=== PATIENT | male | born 1950 | race Caucasian/White ===

== ENCOUNTER 2024-04-01 16:17 | Emergency (ER) | payer MEDICARE, OTHER, SELFPAY ==
[2024-04-01 16:27] VITALS: BP 141/85
[2024-04-01 16:54] LABS: % Basophils 0.5 % (0-2); % Eosinophils 1.8 % (0-6); % Immature Granulocytes 0.9 % (0-0.5); % Lymphocytes 12.6 % (20.5-51.1); % Monocytes 6.3 % (1.7-9.3); % Neutrophils 77.9 % (42.2-75.2); Absolute Basophils 0.1 10^3/uL (0-0.2); Absolute Eosinophils 0.2 10^3/uL (0-0.7); Absolute Immature Granulocytes 0.1 10^3/uL (0-0.05); Absolute Lymphocytes 1.2 10^3/uL (1.2-3.4); Absolute Monocytes 0.6 10^3/uL (0.1-0.6); Absolute Neutrophils 7.3 10^3/uL (1.4-6.5); Hematocrit 46.1 % (39.0-52.0); Hemoglobin 16.5 g/dL (13.0-18.0); Mean Corp Hgb Conc. 35.8 g/dL (33.0-37.0); Mean Corpuscular Hgb 31.4 pg (27.0-31.0); Mean Corpuscular Volume 87.8 fL (80.0-94.0); Mean Platelet Volume 10.5 fL (7.4-10.4); Nucleated Red Blood Cells % 0 % (-); Platelet Count 309 10^3/uL (130-400); Red Blood Cell Count 5.25 10^6/uL (4.70-6.10); Red Cell Dist. Width 13.8 % (11.5-14.5); White Blood Cell Count 9.4 10^3/uL (4.8-10.8)
[2024-04-01 16:58] LABS: ALT (SGPT) 37 U/L (0-50); AST (SGOT) 22 U/L (17-59); Alkaline Phosphatase 74 U/L (38-126); Blood Urea Nitrogen 23 mg/dl (9-20); Calcium 10.1 mg/dl (8.4-10.2); Carbon Dioxide 21 mmol/L (22-30); Chloride 108 mmol/L (98-107); Glucose 105 mg/dl (70-99); Lipase 676 U/L (23-300); Potassium 4.2 mmol/L (3.5-5.1); Sodium 137 mmol/L (135-145); Total Bilirubin 0.8 mg/dl (0.2-1.3); Total Protein 7.7 g/dl (6.3-8.2); eGFR > 60.00
[2024-04-01 18:00] VITALS: BP 160/87
[2024-04-01] MEDS: NSS 1000 IV (18:43)
[2024-04-01 18:44] VITALS: BMI 24.3
--- NOTE | 2024-04-01 18:48 | ED.GENMED ---
History of Present Illness
General
Chief Complaint: Abdominal Pain
Source: patient and spouse
Time Seen by Provider: 04/01/24 18:05
History of Present Illness
History of Present Illness:
74-year-old male who presents with epigastric abdominal pain. Patient states that about 4 to 5 days ago. Symptoms are worse when he eats but constant in nature. Patient denies fevers. Did have a little bit of vomiting but that has resolved. No
melena or hematochezia. Is not a drinker.
Past History
Past History
ED Past Medical History: HTN, Hypercholesterolemia, NIDDM and Other (Kidney stones); Negative CAD or IDDM
ED Past Surgical History: Appendectomy, Orthopedic (Left rotator cuff surgery) and Urological
Social History
Tobacco: Non-smoker
Alcohol: Occasional
Drug: None
Personal:
Living: with family
Employment: Employed
Family History
Family History: Other (Adopted)
Phy Exam
Physical Exam
Physical Exam:
CONSTITUTIONAL Patient alert and oriented to person, place and time. Well-appearing. Vital signs reviewed.
HEAD atraumatic, normocephalic.
EYES eyelids normal to inspection, Pupils equally round and reactive to light, Extraocular muscles intact, Conjunctiva normal, Sclera normal.
NECK normal range of motion, Trachea midline, no jugular venous distention.
RESPIRATORY CHEST No respiratory distress noted, Chest expansion equal, Bilateral breath sounds clear.
CARDIOVASCULAR regular rate and rhythm, Heart sounds normal.
ABDOMEN mild epigastric tenderness, Bowel sounds normal. No distention.
BACK normal inspection, no obvious deformities
UPPER EXTREMITY range of motion normal, Motor strength normal, no cyanosis, no edema.
LOWER EXTREMITY range of motion normal, Motor strength normal, no cyanosis, no edema.
NEURO Speech normal, No focal motor deficits, [place] coma scale 15, Memory normal, Cranial Nerves intact to screening exam.
SKIN skin warm, dry, and normal in color.
Course
Orders/Labs/Results
Orders:
Orders
04/01/24 16:19
ECG [Electrocardiogram (*1)] Urgent
Reason for Study: Chest Pain
EKG- Treatment ONCE
04/01/24 16:36
CBC/With Diff [Complete Blood Count/With Diff] Urgent
CMP [Comprehensive Metabolic Panel] Urgent
Lipase Urgent
04/01/24 18:29
CT Abd/Pel (IV only)-DH only Urgent
Comment:
Reason For Exam: upper abd pain
04/01/24 18:31
0.9% Sodium Chloride 1000 ml [Nss] 1,000 ml IV BOLUS
04/01/24 18:45
HYDROmorphone [Dilaudid] 0.5 mg IV NOW STA
Abnormal Lab Results
04/01/24
16:36
MCH 31.4 H pg
(27.0-31.0)
MPV 10.5 H fL
(7.4-10.4)
Abs Immat Gran (auto) 0.1 H 10^3/uL
(0-0.05)
Absolute Neuts (auto) 7.3 H 10^3/uL
(1.4-6.5)
Immature Gran % 0.9 H %
(0-0.5)
Neutrophils % 77.9 H %
(42.2-75.2)
Lymphocytes % 12.6 L %
(20.5-51.1)
Chloride 108 H mmol/L
(98-107)
Carbon Dioxide 21 L mmol/L
(22-30)
BUN 23 H mg/dl
(9-20)
Glucose 105 H mg/dl
(70-99)
Lipase 676 H U/L
(23-300)
04/01/24 16:36
04/01/24 16:36
Vital Signs
Initial and Last Documented VS:
Initial Vital Signs
Temp Pulse Resp BP Pulse Ox
98.1 F 65 17 141/85 98
04/01/24 16:27 04/01/24 16:27 04/01/24 16:27 04/01/24 16:27 04/01/24 16:27
Last Documented Vital Signs
Temp Pulse Resp BP Pulse Ox
98.4 F 64 18 149/79 96
04/01/24 18:00 04/01/24 18:00 04/01/24 19:01 04/01/24 19:01 04/01/24 19:01
MDM/Problems Addressed
Differential Diagnosis Includes:
Small bowel obstruction, duodenitis, peptic ulcer disease, cholelithiasis, pancreatitis, AAA
MDM/Problems Addressed:
Cholelithiasis, mild pancreatitis, abdominal pain
*Radiology
Radiology exam reviewed: preliminary read by ED provider (Large gallstone noted)
*Pulse Oximetry
Patient hypoxic: no
*EKG
Interpreted by ED Provider?: Yes
Interpretation: abnormal
Rate: bradycardiac
Rhythm: sinus
Interval: normal interval
Ischemia: non-specific ST changes
*Hydraulic Punch Press Operator Interpretation
Rate: normal
Interpretation: normal
Rhythm: sinus
*Critical Care Note
Total Time (30-74mins, 75-104mins- exclusive of procedures): Not Applicable
Data Reviewed
Source: patient and spouse
Further Testing Considered But Not Given:
Considered ultrasound but based on history, check CT to rule out AAA
Patient Management
Escalation/DeEscalation of care consider admission/obs:
Patient feels much better. Question whether his pain is related to mild pancreatitis versus cholelithiasis. Either way I do think outpatient follow-up is reasonable. Recommended clear liquid diet for 48 hours. Also recommended surgical
gastroenterology follow-up. Also recommended he avoid fatty meals
ED Attending Note
-
Portions of this chart may have been created with voice recognition software.� Occasional wrong word or��sound alike� substitutions may have occurred due to the inherent limitations of voice recognition software.
Discharge Plan
Departure
Patient Disposition: Home (Routine Discharge)
Date of Disposition: 04/01/24
Time of Disposition: 21:05
Patient with high blood pressure during this ER visit?: Yes
Discharge Problem:
mild pancreatitis, Cholelithiasis
Instructions: Acute pancreatitis, Clear Liquid Diet, Gallstones (DC)
Prescriptions:
No Action
omega-3 fatty acids-fish oil [Fish Oil] 1,000 MG capsule
2,400 mg PO DAILY
carvedilol phosphate 20 MG capsule, ER multiphase 24 hr
20 mg PO DAILY
amlodipine 5 MG tablet
5 mg PO DAILY
tamsulosin 0.4 MG capsule
0.4 mg PO DAILY
gemfibrozil 600 MG tablet
1,200 mg PO DAILY
escitalopram oxalate 10 MG tablet
10 mg PO DAILY
hydromorphone [Dilaudid] 2 MG tablet
2 mg PO Q6HPRN PRN (Reason: pain) Qty: 10 0RF
glimepiride 2 MG tablet
2 mg PO DAILY
allopurinol 100 MG tablet
100 mg PO DAILY
metformin 1,000 MG tablet
1,000 mg PO BID
promethazine 25 MG tablet
12.5 mg PO Q6HPRN PRN (Reason: vomiting) Qty: 10 0RF
Referrals:
Tramaine Rizo MD [Active] -
UNKNOWN - PT DOES,NOT KNOW [Family Provider] -
Activity Restrictions/Additional Instructions:
Please stick to a clear liquid diet for the next 48 hours. Please see your doctor and surgery in follow-up in the next 3 to 5 days. Please avoid fatty meals. Return immediately for intractable vomiting, worsening pain or any other concerns
Interventions
Interventions:
*Risk Screen - Suicide Last Done: 04/01/24 16:27
*General Assessment Last Done: 04/01/24 16:27
*Neglect/Abuse Screening Last Done: 04/01/24 16:27
ZB-Qajras-Pdlfkmruge Assessment Last Done: 04/01/24 18:39
Discharge Date and Time
Print Language: SOUTH AFR[place]
[2024-04-01] MEDS: DILAUDID 0.5 MG IV (18:58)
[2024-04-01 19:01] VITALS: BP 149/79
[2024-04-01 21:35] VITALS: BP 138/71
== END 2024-04-01 21:37 | disposition home or self-care (01) ==
LOC: EMR 16:17
PROVIDERS: Emergency Medicine; EMERGENCY PHYSICIAN Emergency Medicine
DX: K85.90 Acute pancreatitis without necrosis or infection, unspecified (principal); K80.20 Calculus of gallbladder without cholecystitis without obstruction; I10 Essential (primary) hypertension; E78.00 Pure hypercholesterolemia, unspecified; E11.9 Type 2 diabetes mellitus without complications; Z79.84 Long term (current) use of oral hypoglycemic drugs; Z87.442 Personal history of urinary calculi; Z88.8 Allergy status to other drugs, medicaments and biological substances
CPT/HCPCS: 99285; 96374; 96361; 74177; 80053; 83690; 85025; 93005; Q9967

== ENCOUNTER 2024-04-03 17:23 | Inpatient (IN) | payer MEDICARE, OTHER, SELFPAY ==
[2024-04-03 11:08] VITALS: BP 127/98
[2024-04-03 11:26] LABS: % Basophils 0.8 % (0-2); % Eosinophils 2.1 % (0-6); % Immature Granulocytes 0.9 % (0-0.5); % Lymphocytes 16.5 % (20.5-51.1); % Monocytes 11.6 % (1.7-9.3); % Neutrophils 68.1 % (42.2-75.2); Absolute Basophils 0.1 10^3/uL (0-0.2); Absolute Eosinophils 0.1 10^3/uL (0-0.7); Absolute Immature Granulocytes 0.1 10^3/uL (0-0.05); Absolute Monocytes 0.7 10^3/uL (0.1-0.6); Absolute Neutrophils 4.3 10^3/uL (1.4-6.5); Hematocrit 42.3 % (39.0-52.0); Hemoglobin 15.3 g/dL (13.0-18.0); Mean Corp Hgb Conc. 36.2 g/dL (33.0-37.0); Mean Corpuscular Volume 85.8 fL (80.0-94.0); Mean Platelet Volume 10.1 fL (7.4-10.4); Nucleated Red Blood Cells % 0 % (-); Platelet Count 261 10^3/uL (130-400); Red Blood Cell Count 4.93 10^6/uL (4.70-6.10); Red Cell Dist. Width 13.8 % (11.5-14.5); White Blood Cell Count 6.3 10^3/uL (4.8-10.8)
[2024-04-03 11:37] LABS: Lactic Acid 1.1 mmol/L (0.7-2.0)
[2024-04-03 11:45] VITALS: BP 126/76
[2024-04-03 11:48] LABS: ALT (SGPT) 26 U/L (0-50); AST (SGOT) 23 U/L (17-59); Albumin 4.6 g/dl (3.5-5.0); Alkaline Phosphatase 74 U/L (38-126); Blood Urea Nitrogen 15 mg/dl (9-20); Calcium 9.8 mg/dl (8.4-10.2); Carbon Dioxide 20 mmol/L (22-30); Chloride 106 mmol/L (98-107); Glucose 174 mg/dl (70-99); Lipase 455 U/L (23-300); Potassium 4.4 mmol/L (3.5-5.1); Sodium 135 mmol/L (135-145); Total Protein 7.2 g/dl (6.3-8.2); eGFR > 60.00
[2024-04-03 12:00] VITALS: BP 113/74
--- NOTE | 2024-04-03 12:15 | ED.GENMED ---
History of Present Illness
<Ariana Jimenez PA-C - Last Filed: 04/03/24 17:49>
General
Chief Complaint: Abdominal Symptoms
Source: patient
Exam Limitations: none
Time Seen by Provider: 04/03/24 11:42
Nursing documentation reviewed up to this point in time: agreed with
History of Present Illness
History of Present Illness:
74-year-old male with past medical history of pancreatitis, nephrolithiasis, [id number]-vxyeifdgm diabetes, hypertension, hyperlipidemia presenting to emergency department today with concerns of epigastric pain. Patient reports that he was seen in
the emergency department 2 days ago and was seen for pancreatitis and gallstones. Patient did not have cholecystitis at the time. Patient states that since discharge, his pain has gotten worse, and he has not been able to keep anything down has had
persistent nausea and vomiting. He has been on a liquid diet. Patient denies any fevers or chills. Patient denies any constipation or diarrhea. Patient denies recent long distance travel outside the country. Patient states that 'I will not leave
here until my gallbladder is removed.' Patient denies chest pain, shortness of breath, flank pain, urinary symptoms.
Past History
<Ariana Jimenez PA-C - Last Filed: 04/03/24 17:49>
Past History
ED Past Medical History: HTN, Hypercholesterolemia, NIDDM and Other (Kidney stones); Negative CAD or IDDM
ED Past Surgical History: Appendectomy, Orthopedic (Left rotator cuff surgery) and Urological
Social History
Tobacco: Non-smoker
Alcohol: Occasional
Drug: None
Personal:
Living: with family
Employment: Employed
Family History
Family History: Other (Adopted)
Review of Systems
<Ariana Jimenez PA-C - Last Filed: 04/03/24 17:49>
Review of Systems
All Other Systems: ROS reviewed and negative except as documented in HPI and ROS
Phy Exam
<Ariana Jimenez PA-C - Last Filed: 04/03/24 17:49>
Physical Exam
Physical Exam:
General: Patient is well appearing and in no acute distress; non-toxic
Skin: Warm and dry, no rashes or lesions
Head: Normocephalic, atraumatic
Eyes: Sclera non-icteric. EOMs intact. PERRLA.
Cardiac: Regular rate and rhythm, no murmurs
Pulm: Normal respiratory effort
Abdomen: Epigastric abdominal tenderness to palpation. No palpable masses. No pulsatile abdominal mass. Normoactive bowel sounds.
Neuro: CN II-XII intact, no focal neurologic deficits.
Psychiatric: Appropriate mood and affect.
Course
<MICHAEL Ennis Last Filed: 04/03/24 17:49>
Orders/Labs/Results
Orders:
Orders
04/03/24 11:20
Cardiovascular Evaluation Urgent
Comment: ADDON
Complete Blood Count/With Diff Urgent
Comprehensive Metabolic Panel Urgent
Lactic Acid Urgent
Lipase Urgent
04/03/24 12:26
US Abdomen Complete/Upper Urgent
Reason For Exam: epigastric pain
04/03/24 12:37
IV Insert/Care/Rem.- Treatment PRN
0.9% Sodium Chloride 1000 ml [Nss] 1,000 ml IV BOLUS
HYDROmorphone [Dilaudid] 0.5 mg IV NOW STA
Ondansetron Injectable [Zofran] 4 mg IV NOW STA
04/03/24 12:38
Electrocardiogram (*1) Urgent
Reason for Study: Abdominal Pain
04/03/24 12:39
EKG- Treatment ONCE
04/03/24 Dinner
NPO
Allow oral meds: Yes
Allow clear liquids: Sips of Clears
04/03/24 16:44
Admit/Transfer Patient As Directed
Co-Sign Provider:
Level of Care: Inpatient admission
Assign to:: Medical/Surgical
Physician / Group: Primitivo Ford
Diagnosis: Acute pancreatitis Cholelithiasis
Reason for Hospitalization: Acute pancreatitis, failed outpatient clear liquid diet with worsening pain.
Expected length of stay greater than two midnights?: Yes
ELOS- Estimated Length of Stay in days: 3
I certify the patient meets the requirements for IP care: Yes
Reason for Overnight Stay: Standard of Care
04/03/24 16:49
Code Status As Directed
Resuscitation Status: Full Code
04/03/24 16:52
Abdomen/Pelvis w/wo Contrast CT [CT Abd/pelvis W/wo Iv Cont] Routine
Comment:
Reason For Exam: Pancreatitis, (-) CT on 04/01, worsening symptoms
04/03/24 16:54
Acetaminophen [Tylenol] 650 mg PO Q6HPRN PRN
HYDROmorphone [Dilaudid] 0.25 mg IV Q4HPRN PRN
HYDROmorphone [Dilaudid] 0.5 mg IV Q4HPRN PRN
04/03/24 17:00
Lactated Ringers [Lr] 1,000 ml IV 150 mls/hr
04/03/24 17:08
Add On- LAB Urgent
Tests Added?: Lipid Profile (cardiovascular) routine
04/03/24 18:00
Ondansetron Injectable [Zofran] 4 mg IV Q6HPRN PRN
04/04/24 08:00
FOLic ACID [Folvite] 1 mg PO DAILY
Abnormal Lab Results
04/03/24
11:20
Abs Immat Gran (auto) 0.1 H 10^3/uL
(0-0.05)
Absolute Lymphs (auto) 1.0 L 10^3/uL
(1.2-3.4)
Absolute Monos (auto) 0.7 H 10^3/uL
(0.1-0.6)
Immature Gran % 0.9 H %
(0-0.5)
Lymphocytes % 16.5 L %
(20.5-51.1)
Monocytes % 11.6 H %
(1.7-9.3)
Carbon Dioxide 20 L mmol/L
(22-30)
Glucose 174 H mg/dl
(70-99)
Lipase 455 H U/L
(23-300)
04/03/24 11:20
04/03/24 11:20
Vital Signs
Initial and Last Documented VS:
Initial Vital Signs
Temp Pulse Resp BP Pulse Ox
98.3 F 74 20 127/98 99
04/03/24 11:08 04/03/24 11:08 04/03/24 11:08 04/03/24 11:08 04/03/24 11:08
Last Documented Vital Signs
Temp Pulse Resp BP Pulse Ox
98.3 F 74 20 128/84 98
04/03/24 11:08 04/03/24 11:08 04/03/24 11:08 04/03/24 13:00 04/03/24 13:30
<Kd Gardner MD - Last Filed: 04/03/24 14:52>
Orders/Labs/Results
Orders:
Orders
04/03/24 11:20
Cardiovascular Evaluation Urgent
Comment: ADDON
Complete Blood Count/With Diff Urgent
Comprehensive Metabolic Panel Urgent
Lactic Acid Urgent
Lipase Urgent
04/03/24 12:26
US Abdomen Complete/Upper Urgent
Reason For Exam: epigastric pain
04/03/24 12:37
IV Insert/Care/Rem.- Treatment PRN
0.9% Sodium Chloride 1000 ml [Nss] 1,000 ml IV BOLUS
HYDROmorphone [Dilaudid] 0.5 mg IV NOW STA
Ondansetron Injectable [Zofran] 4 mg IV NOW STA
04/03/24 12:38
Electrocardiogram (*1) Urgent
Reason for Study: Abdominal Pain
04/03/24 12:39
EKG- Treatment ONCE
04/03/24 Dinner
NPO
Allow oral meds: Yes
Allow clear liquids: Sips of Clears
04/03/24 16:44
Admit/Transfer Patient As Directed
Co-Sign Provider:
Level of Care: Inpatient admission
Assign to:: Medical/Surgical
Physician / Group: Primitivo Ford
Diagnosis: Acute pancreatitis Cholelithiasis
Reason for Hospitalization: Acute pancreatitis, failed outpatient clear liquid diet with worsening pain.
Expected length of stay greater than two midnights?: Yes
ELOS- Estimated Length of Stay in days: 3
I certify the patient meets the requirements for IP care: Yes
Reason for Overnight Stay: Standard of Care
04/03/24 16:49
Code Status As Directed
Resuscitation Status: Full Code
04/03/24 16:52
Abdomen/Pelvis w/wo Contrast CT [CT Abd/pelvis W/wo Iv Cont] Routine
Comment:
Reason For Exam: Pancreatitis, (-) CT on 04/01, worsening symptoms
04/03/24 16:54
Acetaminophen [Tylenol] 650 mg PO Q6HPRN PRN
HYDROmorphone [Dilaudid] 0.25 mg IV Q4HPRN PRN
HYDROmorphone [Dilaudid] 0.5 mg IV Q4HPRN PRN
04/03/24 17:00
Lactated Ringers [Lr] 1,000 ml IV 150 mls/hr
04/03/24 17:08
Add On- LAB Urgent
Tests Added?: Lipid Profile (cardiovascular) routine
04/03/24 18:00
Ondansetron Injectable [Zofran] 4 mg IV Q6HPRN PRN
04/04/24 08:00
FOLic ACID [Folvite] 1 mg PO DAILY
Abnormal Lab Results
04/03/24
11:20
Abs Immat Gran (auto) 0.1 H 10^3/uL
(0-0.05)
Absolute Lymphs (auto) 1.0 L 10^3/uL
(1.2-3.4)
Absolute Monos (auto) 0.7 H 10^3/uL
(0.1-0.6)
Immature Gran % 0.9 H %
(0-0.5)
Lymphocytes % 16.5 L %
(20.5-51.1)
Monocytes % 11.6 H %
(1.7-9.3)
Carbon Dioxide 20 L mmol/L
(22-30)
Glucose 174 H mg/dl
(70-99)
Lipase 455 H U/L
(23-300)
04/03/24 11:20
04/03/24 11:20
Vital Signs
Initial and Last Documented VS:
Initial Vital Signs
Temp Pulse Resp BP Pulse Ox
98.3 F 74 20 127/98 99
04/03/24 11:08 04/03/24 11:08 04/03/24 11:08 04/03/24 11:08 04/03/24 11:08
Last Documented Vital Signs
Temp Pulse Resp BP Pulse Ox
98.3 F 74 20 128/84 98
04/03/24 11:08 04/03/24 11:08 04/03/24 11:08 04/03/24 13:00 04/03/24 13:30
<Ariana Jimenez PA-C - Last Filed: 04/03/24 17:49>
MDM/Problems Addressed
Differential Diagnosis Includes:
ddx include biliary colic, gastritis, pancreatitis, cholecystitis, ACS
MDM/Problems Addressed:
Epigastric pain:
74-year-old male with past medical history of pancreatitis, nephrolithiasis, fhy-eejyacf-ugsmlpddg diabetes, hypertension, hyperlipidemia presenting to emergency department today with concerns of epigastric pain. Patient reports that he was seen in
the emergency department 2 days ago and was seen for pancreatitis and gallstones. Patient did not have cholecystitis at the time. Patient states that since discharge, his pain has gotten worse, and he has not been able to keep anything down has had
persistent nausea and vomiting. On physical exam, he is well-appearing, his vitals are stable, he is afebrile. He does have some tenderness palpation in the epigastric region and worse in the right upper quadrant. He does have guarding with this.
His CBC is unremarkable and his CMP and CBC are unremarkable. His lipase today is 455 which is decreased from 676 recently. Ultrasound was obtained today which does show gallstones but no evidence of cholecystitis. Considering patient persistent
pain, inability to tolerate p.o. intake, he will be admitted to the hospital for further workup and care. Patient referred for hospitalist admission.
Chronic conditions affecting care:
Hypertension, hyperlipidemia, pancreatitis, sleep apnea, prostatic hypertrophy, diabetes
Acute Exacerbation and/or Progression of Chronic Illness:
Hypertension, hyperlipidemia, pancreatitis, sleep apnea, prostatic hypertrophy, diabetes
<Ariana Jimenez PA-C - Last Filed: 04/03/24 17:49>
*Critical Care Note
Total Time (30-74mins, 75-104mins- exclusive of procedures): Not Applicable
ED Attending Note
<Ariana Jimenez PA-C - Last Filed: 04/03/24 17:49>
-
Portions of this chart may have been created with voice recognition software.� Occasional wrong word or��sound alike� substitutions may have occurred due to the inherent limitations of voice recognition software.
<Kd Gardner MD - Last Filed: 04/03/24 14:52>
ED Attending Note
Patient seen and examined by attending physician: Yes
ED Attending Note:
Patient diagnosed with pancreatitis and gallstones in ED 2 days ago, presents to ED secondary to persistent pain along with multiple vomiting episodes today. Denies fever or chills. Denies new trauma. Denies diarrhea. Abdominal pain described as
sharp, nonradiating, without any alleviating or exacerbating factors. Patient has been eating broth with fluids at home since being discharged. Denies previous history of similar symptoms.
Physical Exam
General: mild painful distress, not acutely ill. afebrile
Head: nc/at. eomi
Neck: supple. no meningeal signs.
Heart: s1/s2 regular rate and rhythm, no murmur. equal radial pulses.
Lungs: no acute respiratory distress. clear bilaterally
Abdomen: normal bowel sounds. mild epigastric tenderness to palpation. no rebound/guarding
Neuro: alert and oriented. no focal neurological deficits
Skin: no rash
Psychiatric: well kept. interactive and cooperative
Extremities: no edema. no calf tenderness.
Ultrasound: Cholelithiasis
History and exam consistent with biliary colic, but persistently symptomatic. Patient will be admitted for further evaluation and treatment, including likely surgical consultation.
Discharge Plan
Departure
Patient Disposition: Admit
Date of Disposition: 04/03/24
Time of Disposition: 15:17
Admit to: Med/Surg
Presentation/result/management discussed w/ accepting MD/DO: Hospitalist
Patient with high blood pressure during this ER visit?: Yes
Condition: Fair
Discharge Problem:
Epigastric pain, Intractable nausea
Interventions
Interventions:
*Risk Screen - Suicide Last Done: 04/03/24 11:08
*General Assessment Last Done: 04/03/24 11:08
*Neglect/Abuse Screening Last Done: 04/03/24 11:08
ED- Fall Risk Assessment Last Done: 04/03/24 12:39
*ED COVID-19 Vaccine History Last Done: 04/03/24 12:39
LM-Lninwd-Iotrjuefub Assessment Last Done: 04/03/24 12:39
[2024-04-03 12:39] VITALS: BMI 24.0
[2024-04-03] MEDS: DILAUDID 0.5 MG IV ×3 (12:43→23:33)
[2024-04-03] MEDS: ZOFRAN 4 MG IV (12:43)
[2024-04-03] MEDS: NSS 1000 IV (12:43)
[2024-04-03 13:00] VITALS: BP 128/84
--- NOTE | 2024-04-03 16:07 | HPS.HSE ---
Family Physician
-
Family Physician: Donny Ha
Chief Complaint
-
Epigastric pain, DC from the ED 2 days ago with pancreatitis
History of Present Illness
74-year-old male with RA/PsA (on MTX) NIDDM, HTN, HLD, nephrolithiasis, recent pancreatitis that presented to the ED with concerns of epigastric pain. He was last seen here in the ED 2 days ago where he was found to have mild pancreatitis and
gallstones. No cholecystitis noted from the time he was here. He was discharged from the ED and since that time he has clinically worsened. As of now he is unable to tolerate oral intake, has persistent nausea and vomiting. He was on liquid diet
at tolerating it. Denies fevers chills, constipation or diarrhea. He denies any recent travel or recent excursions. In the ED he told staff 'I will not be [place] my gallbladder is removed'.
On arrival to the ED he was afebrile, hemodynamically stable, on room air with SpO2 high 90s. Labs in the ED showed lipase 455 (down from 632 days ago), bicarb 20 but otherwise unremarkable. Abdominal ultrasound performed in the ED showed
cholelithiasis without evidence of gallbladder inflammation or biliary obstruction. CT A/P from 04/01 did not show any peripancreatic inflammation or fluid collections. In the ED he was given 1 L of IV fluids, 4 mg Zofran, 0.5 mg Dilaudid IV. Upon
time of my evaluation he states that he felt well, pain was minimal.
Medical History
Past Medical History
Past Medical History: Reports Hypercholesterolemia and NIDDM
Additional Past Medical History:
Rheumatoid arthritis/psoriatic arthritis on methotrexate
Past Surgical History: Reports Appendectomy and Orthopedic
Social History
Tobacco: Non-smoker
Alcohol: None
Drug: Marijuana (Medical, chronic pain and sleep disturbance)
Personal:
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
Family History
Family History: Adopted
Allergies / Home Medications
Allergies reflects when Allergies were last updated in [employer].
Home Medications with original date entered in [employer]
Allergy/Medication List:
Listed to metformin and statins.
Review of Systems
-
History Source: Patient
A 12 point ROS was completed and negative except as noted: Yes
Constitutional: Reports No Symptoms and See HPI
Respiratory: Reports No Symptoms and See HPI
Cardiac: Reports No Symptoms and See HPI
Abdomen/GI: Reports Abdominal Pain, Nausea, Vomiting and Diarrhea; Denies Constipated or Bloody Stools
: Reports No Symptoms
Musculoskeletal: Reports No Symptoms
Skin: Reports No Symptoms
Neurological: Reports No Symptoms
Hematologic/Lymphatic: Reports No Symptoms; Denies Bleeding
Physical Exam
Vital Signs
Vital Signs
Temp Pulse Resp BP Pulse Ox
98.3 F 74 20 128/84 98
04/03/24 11:08 04/03/24 11:08 04/03/24 11:08 04/03/24 13:00 04/03/24 13:30
Physical Exam
General: Well Nourished, No Apparent Distress, Comfortable and Conversant
HEENT: NormoCephalic, Anicteric, Moist mucous membranes, Atraumatic and PERRLA; No Thyromegaly
Respiratory: Clear and Non Labored Respirations; No Wheezes, Rales, Rhonchi, Crackles or Accessory Resp Muscle Use
Cardiac: S1/S2 and Regular Rhythm; No Murmur, Rub, Gallop, Peripheral Edema or JVD
GI: Soft, Non Distended, Normal Bowel Sounds and Tender (Epigastric tenderness, no peritoneal signs)
Musculoskeletal: No Clubbing, No Cyanosis and Other (No gross deformities, normal ROM)
Skin: Warm, Dry and Other (Normal skin turgor); No Rash or Jaundice
Neuro: AO x 3, Nonfocal/grossly intact and Cranial Nerves Intact
Laboratory Results
-
04/03/24 11:20
04/03/24 11:20
Laboratory Results
Lactic Acid 1.1 mmol/L (0.7-2.0) 04/03/24 11:20
Total Bilirubin 1.0 mg/dl (0.2-1.3) 04/03/24 11:20
AST 23 U/L (17-59) 04/03/24 11:20
ALT 26 U/L (0-50) 04/03/24 11:20
Alkaline Phosphatase 74 U/L (38-126) 04/03/24 11:20
Lipase 455 U/L (23-300) H 04/03/24 11:20
Impression/Plan
-
#Acute Pancreatitis -- Lee class 0
#Nausea and vomiting
-Differentials include gallstone, SGLT2i, oral antihyperglycemic medications, idiopathic
-Lipase 644 two days ago, CT scan did not show any pancreatic inflammation
-Failed outpatient clear liquid diet, developed recurrent nausea and vomiting
-Ultrasound RUQ today showed cholelithiasis though no signs of cholecystitis
-Hemodynamically stable, [place] score is very low, low risk mortality
Plan
-Start IV LR at 150 mL/h, hematocrit goal <44%
-Order LFTs now rule out CBD stone, trend daily
-Order lipid panel to rule out TGs as etiology
-Repeat CT A/P w/o contrast to reassess
-Hold SGLT2, glimepiride, metformin
-Trend daily Hct, BUN
-NPO, PRN analgesia
-Consider surgical eval if gallstone is cause
#NIDDM
-Home regimen includes Jardiance, metformin, glimepiride
-No recent A1c to review, no known microvascular complications
-Holding oral agents as above, started on ISS with Accu-Cheks
#Hypertension
-Home regimen includes carvedilol twice daily, amlodipine daily
-No known systemic cardiovascular complications
-Blood pressure currently well-controlled despite pain
#HLD
-No known ASCVD history,
-allergic to statin, currently on gemfibrozil twice daily
#RA/PsA -- on immunomodulator
-Per his history he has both rheumatoid and psoriatic arthritis
-On chronic immunosuppression with methotrexate 7.5 mg daily
-No signs of worsening tenosynovitis or joint inflammation
#H/O nephrolithiasis
-No known underlying conditions, likely related to hydration and diet
-No signs of underlying nephrolithiasis now
-Continued on tamsulosin
DVT PPhx: Heparin subcu
Diet: N.p.o.
CODE STATUS: Full code
Disposition: Admit to Med/Surg
The patient Lan Holder is being admitted to the med/surg for acute pancreatitis with nausea and vomiting that failed outpatient trial of clear liquid diet. He has ongoing risk for further morbidity and mortality due to reduced oral intake,
dehydration, potential pancreatic necrosis and recurrent episodes if deemed secondary to cholelithiasis. He will need aggressive monitoring of his oral intake and bowel status, monitoring of his LFTs to rule out choledocholithiasis, potential
surgical intervention on his gallbladder.
[2024-04-03 17:58] LABS: HDL Cholesterol 54 mg/dl; LDL Cholesterol, Calculated 144 mg/dl; Total Cholesterol 231 mg/dl (50-199); Triglyceride 166 mg/dl (10-149); Very Low Density Lipoprotein 33 mg/dl (0-30)
[2024-04-03 18:22] VITALS: BP 138/70
[2024-04-03 18:24] VITALS: BMI 23.7
[2024-04-03] MEDS: LR 1000 IV ×2 (18:29→23:45)
--- NOTE | 2024-04-03 18:41 | PTCARENOTE ---
Pt received from ED. AAOx3. VSS. Pt complaining of 7/10 abdominal pain. PRN IV Dilaudid given with relief. IVF started through [facility]. Pt resting in bed, call guzman within reach. Family at bedside.
[2024-04-03] MEDS: LOPID 600 MG PO (19:59)
[2024-04-03 23:00] VITALS: BP 122/65
[2024-04-03] MEDS: HEPARIN 5000 UNITS SC (23:33)
[2024-04-04] MEDS: LR 1000 IV ×3 (06:15→21:41)
[2024-04-04] MEDS: DILAUDID 0.5 MG IV ×3 (06:15→23:06)
[2024-04-04 07:00] VITALS: BP 129/70
[2024-04-04 07:28] LABS: % Basophils 0.8 % (0-2); % Eosinophils 3.2 % (0-6); % Immature Granulocytes 0.4 % (0-0.5); % Monocytes 14.9 % (1.7-9.3); % Neutrophils 59.7 % (42.2-75.2); Absolute Eosinophils 0.2 10^3/uL (0-0.7); Absolute Monocytes 0.7 10^3/uL (0.1-0.6); Absolute Neutrophils 2.8 10^3/uL (1.4-6.5); Hematocrit 36.7 % (39.0-52.0); Hemoglobin 12.9 g/dL (13.0-18.0); Mean Corp Hgb Conc. 35.1 g/dL (33.0-37.0); Mean Corpuscular Hgb 30.6 pg (27.0-31.0); Mean Platelet Volume 10.6 fL (7.4-10.4); Nucleated Red Blood Cells % 0 % (-); Platelet Count 212 10^3/uL (130-400); Red Blood Cell Count 4.22 10^6/uL (4.70-6.10); Red Cell Dist. Width 13.8 % (11.5-14.5); White Blood Cell Count 4.8 10^3/uL (4.8-10.8)
[2024-04-04 08:02] LABS: ALT (SGPT) 21 U/L (0-50); AST (SGOT) 21 U/L (17-59); Albumin 3.8 g/dl (3.5-5.0); Alkaline Phosphatase 75 U/L (38-126); Blood Urea Nitrogen 14 mg/dl (9-20); Carbon Dioxide 19 mmol/L (22-30); Chloride 108 mmol/L (98-107); Estimated Creatinine Clearance 108 ml/min; Glucose 69 mg/dl (70-99); Magnesium 2.1 mg/dl (1.6-2.3); Potassium 4.1 mmol/L (3.5-5.1); Sodium 133 mmol/L (135-145); Total Bilirubin 0.9 mg/dl (0.2-1.3); Total Protein 6.1 g/dl (6.3-8.2); eGFR > 60.00
[2024-04-04] MEDS: HEPARIN 5000 UNITS SC ×3 (08:20→23:05)
[2024-04-04] MEDS: FOLVITE 1 MG PO (08:21)
[2024-04-04] MEDS: LEXAPRO 10 MG PO (08:21)
[2024-04-04] MEDS: LOPID 600 MG PO ×2 (08:21→21:42)
[2024-04-04] MEDS: FLOMAX 0.4 MG PO (08:21)
[2024-04-04] MEDS: ZYLOPRIM 100 MG PO (08:21)
[2024-04-04] MEDS: NORVASC 5 MG PO (08:27)
[2024-04-04] MEDS: COREG PO (08:28)
--- NOTE | 2024-04-04 09:48 | W.PN.HOSP.TC ---
Addendum entered and electronically signed by Primitivo Ford DO 04/04/24 14:37:
Patient confirms methotrexate dosing of 7.5 mg twice daily on Sundays. His had his home prescription brought in today, he plans to use his home pills. No order in for methotrexate at this time. Added to patient own medication order.
Original Note:
Today's Communication/Plan
-
N.p.o., continue IV fluids
As needed analgesia and antiemetics
General surgery consult
GI consult
Assessment / Plan
Assessment / Plan
#Acute Pancreatitis -- Lee class 0; gallstone versus medication induced
#Pancreatic Atrophy on CT, mild -- with previous med induced pancreatitis, question of chronic component
#Nausea and vomiting
#Epigastric pain -- radiates to the back
-Differentials include gallstone, SGLT2i, oral antihyperglycemic medications, idiopathic
-Lipase 644 two days ago, CT scan did not show any pancreatic inflammation
-Failed outpatient clear liquid diet, developed recurrent nausea and vomiting
-Ultrasound RUQ today showed cholelithiasis though no signs of cholecystitis
-Repeat CT scan here today again without signs of inflammation of the pancreas
-Hemodynamically stable, [place] score is very low, low risk mortality
Plan
-Continue IV LR at 150 mL/h, trend BUN and hematocrit (goal <44%)
-Hold SGLT2, glimepiride, metformin
-NPO, as needed analgesia, as needed antiemetics
-Consult surgery
#Dyspepsia
-Complaining of GERD/dyspepsia symptoms with belching
-Do not suspect this is the primary process causing his symptoms
-Ordered IV Protonix, will reassess symptoms after dosing
#NIDDM
-Home regimen includes Jardiance, metformin, glimepiride
-No recent A1c to review, no known microvascular complications
-Holding oral agents as above, started on ISS with Accu-Cheks
#Hypertension
-Home regimen includes carvedilol twice daily, amlodipine daily
-No known systemic cardiovascular complications
-Blood pressure currently well-controlled despite pain
#HLD
-No known ASCVD history,
-allergic to statin, currently on gemfibrozil twice daily
#RA/PsA -- on immunomodulator
-Per his history he has both rheumatoid and psoriatic arthritis
-On chronic immunosuppression with methotrexate 7.5 mg daily
-No signs of worsening tenosynovitis or joint inflammation
#H/O nephrolithiasis
-No known underlying conditions
-Continued on tamsulosin
DVT PPhx: Heparin subcu
Diet: N.p.o.
CODE STATUS: Full code
Anticipated Discharge: > 48 hours
Subjective/Interval History
-
Date of Service: April 04, 2024
No acute events overnight. States that he did have significant abdominal pain, no nausea or vomiting. Pain is currently well-controlled with his IV Dilaudid dosing. He mentions that the pain slightly shifted overnight and he also developed some
belching. Question if there is a component to GERD/dyspepsia that are contributing to his symptoms. He denies dysphagia or regurgitation.
He also denies chest pain, shortness of breath, fevers or chills, diarrhea. Has not had a bowel movement yet.
Objective Data
-
Labs:
Laboratory Results
04/04/24
06:41
WBC 4.8
Hgb 12.9 L
Hct 36.7 L
Plt Count 212
Sodium 133 L
Potassium 4.1
Chloride 108 H
Carbon Dioxide 19 L
BUN 14
Creatinine 0.7
Glucose 69 L
Calcium 9.0
Total Bilirubin 0.9
AST 21
ALT 21
Alkaline Phosphatase 75
Vital Signs:
Vital Signs
Temp Pulse Resp BP Pulse Ox
97.8 F 53 16 129/70 98
04/04/24 07:00 04/04/24 07:00 04/04/24 07:00 04/04/24 07:00 04/04/24 07:00
I&O
04/03/24 04/04/24 04/05/24
06:59 06:59 06:59
Intake Total 0 / 0
Balance 0 / 0
Review of Systems
-
History Source: Patient
All other systems: Reviewed and negative
Physical Exam
-
General: Well Developed, No Apparent Distress, Comfortable and Conversant
HEENT: Normocephalic, Atraumatic, Moist Mucous Membranes and Anicteric
Respiratory: Clear to Auscultation and Non Labored Respirations; Negative Wheezes, Rales or Rhonchi
Cardiac: Regular Rhythm; Negative Murmur, Rub or Gallop
GI: Soft, Nondistended, Normal Bowel Sounds and Tender (Epigastrium, no peritoneal signs)
Musculoskeletal: No Clubbing, No Cyanosis and No Edema
Skin: Warm and Dry; Negative Rash or Jaundice
Neuro: AO x 3, Nonfocal/Grossly Intact and Central Nerve's Intact
Data Reviewed
-
CT Scan: Report Reviewed by me and Discussed with Patient
Labs: Labs Reviewed by me and Discussed with Patient
--- NOTE | 2024-04-04 10:05 | CON.GS ---
Addendum entered and electronically signed by Isidoro Grajeda MD 04/04/24 16:33:
Patient seen and examined.
Patient is a 74 yo M with a PMH of HLD, NIDDM, and pancreatitis who presents with persistent epigastric abdominal pain radiating through to his back. Mr. Thompson states that his symptoms began last Friday and persisted until prompting
presentation to the ED. He was evaluated in the ED and noted to have a mildly elevated lipase. He was discharged home with medical management. His symptoms persisted prompting presentation to the ER. He denies any jaundice, pale stools, or tea
colored urine. His prior episode of pancreatitis was approximately 9 years ago and was believed to be medication induced (Gregoryuvia). He denies any prior intermittent attacks of RUQ abdominal pain. His pain is worsened by PO intake. Currently he
states that his symptoms have resolved.
Gen: NAD
Abd: soft, NT/ND, non-peritoneal
Labs and imaging reviewed.
Patient is a 74 yo M p/w pancreatitis
Gallstone mediated pancreatitis is certainly in the differential given his cholelithiasis. Prior history of medication related pancreatitis, combined with the lack of elevations in his bilirubin and LFTs are unusual. We did discuss cholecystectomy
as a potentially diagnostic and therapeutic procedure. Given his current clinical stability and questionable diagnosis, recommend GI consultation for opinion on alternative causes of his pancreatitis. Patient is somewhat frustrated on clarity and
direction of his current clinical situation; that being said he agrees with the approach. All questions answered.
-- GI consult
-- Possible laparoscopic cholecystectomy with IOC pending the above
-- LFD, NPO PM
Original Note:
Consultation
-
Date/Time Consultation Requested: 04/04/2024, 07:54
Date/Time Consultation Performed: 04/04/2024, 09:30
Requesting Provider: Primitivo Ford DO
Performing Provider: Isidoro Grajeda MD
Reason for Consultation: gallstones
Medical History
-
Chief Complaint: epigastric pain
History of Present Illness:
74-year-old male with a past medical history of diabetes and pancreatitis 9 years ago, presents to the emergency room complaining of epigastric pain. Patient states the pain started 6 days ago when he woke up from sleep. The pain was epigastric
in nature and worsened in the next 24 hours and into his back. He went to the ER at [facility] 3 days ago and was diagnosed with mild pancreatitis versus cholelithiasis. It was recommended he avoid fatty meals, follow-up with general
surgery, and follow-up with a churn driller. His pain continued to worsen after he was discharged in the ER and he vomited 2 days ago at home. Given worsening pain, he came to the ER yesterday on 04/03.
The patient states no food has triggered his pain. He denies pale stools or dark urine. He denies any jaundice symptoms. He is a former drinker and stopped alcohol use 9 years ago. He states he had some fevers at home but has not had any over
the past few days. He has received Dilaudid while in the hospital which has made his pain improved. On admission his WBC was 6.3 and is 4.8 today. His ALT and AST are within normal range. His lipase is 455 from [address] of the
abdomen pelvis performed yesterday shows moderate diffuse hepatic's steatosis, cholelithiasis, and moderate diverticulosis in the sigmoid colon. We have been consulted for further surgical opinion.
Past Medical History
Past Medical History: Other (Hypercholesterolemia, NIDDM, h/o pancreatitis 9 years ago)
Past Surgical History: Appendectomy and Orthopedic
Social History
Tobacco: Non-Smoker
Alcohol: Former
Drug: Marijuana
Personal:
Employment: Retired
Family History
Family History: Reviewed & Not Pertinent
Allergies / Home Medications
Allergy/AdvReac Type Severity Reaction Status Date / Time
simvastatin Allergy muscle Verified 04/03/24 11:08
aches
sitagliptin [From Januvia] Allergy Unknown Verified 04/03/24 11:08
Brujjpa-TJJ-VvW Reductase Allergy muscle Verified 04/03/24 11:08
Inhibitor aches
[Cibqsii-Nwi-Ksc Reductase
Inhibitor]
�Medication �Instructions �Recorded �Confirmed �Type
amlodipine 5 mg tablet 5 mg PO DAILY 11/04/14 04/03/24 History
escitalopram oxalate 10 mg tablet 10 mg PO DAILY 11/04/14 04/03/24 History
gemfibrozil 600 mg tablet 600 mg PO BID 11/04/14 04/03/24 History
tamsulosin 0.4 mg capsule 0.4 mg PO DAILY 11/04/14 04/03/24 History
allopurinol 100 mg tablet 100 mg PO DAILY 04/22/19 04/03/24 History
glimepiride 2 mg tablet 2 mg PO BID 04/22/19 04/03/24 History
carvedilol 25 mg tablet 25 mg PO DAILY 04/03/24 04/03/24 History
empagliflozin 10 mg tablet 10 mg PO DAILY 04/03/24 04/03/24 History
(Jardiance)
lorazepam 0.5 mg tablet 0.5 mg PO HSPRN PRN sleep 04/03/24 04/03/24 History
metformin 500 mg tablet 1,000 mg PO BIDWMEAL 04/03/24 04/03/24 History
methotrexate sodium 2.5 mg tablet 7.5 mg PO DAVISON 04/03/24 04/03/24 History
Review of Systems
-
History Source: Patient
All other systems: Negative unless noted
Constitutional: Fever
Abdomen/GI: Abdominal Pain (epigastric) and Vomiting
A 10 point review of systems was completed, and was negative except as per HPI.
Physical Exam
Vital Signs
Temp Pulse Resp BP Pulse Ox
97.8 F 53 16 129/70 98
04/04/24 07:00 04/04/24 07:00 04/04/24 07:00 04/04/24 07:00 04/04/24 07:00
04/03/24 04/04/24 04/05/24
06:59 06:59 06:59
Actual Weight 81.391 kg
Body Mass Index (BMI) 23.7
Lab Results
04/04/24 06:41
04/04/24 06:41
WBC 4.8 10^3/uL (4.8-10.8) 04/04/24 06:41
Hgb 12.9 g/dL (13.0-18.0) L 04/04/24 06:41
Hct 36.7 % (39.0-52.0) L 04/04/24 06:41
Plt Count 212 10^3/uL (130-400) 04/04/24 06:41
Abs Immat Gran (auto) 0.0 10^3/uL (0-0.05) 04/04/24 06:41
Neutrophils % 59.7 % (42.2-75.2) 04/04/24 06:41
Physical Exam
General: Well Developed, Well Nourished and No Apparent Distress
GI: Soft, Non Tender and Non Distended
Skin: Warm and Dry
Neuro: AO x 3
Psych: Calm
Data Reviewed
-
CT Scan: Image Personally Visualized and interpreted, Report Reviewed by me and Discussed with Patient
Labs: Labs Reviewed by me, Discussed with Physician and Discussed with Patient
Old Records: Reviewed
Assessment / Plan
-
Assessment: 74-year-old male with a history of pancreatitis 9 years ago presents to the emergency department epigastric pain for the past 6 days and found to have cholelithiasis on CT
Plan:
-No emergent surgery at this time, would first like to have opinion from gastroenterology for ? further testing given lack of rise of liver enzymes
-Possible surgery during this admission
-Continue with pain control
-Will start on a low-fat diet today
-Trend labs
--- NOTE | 2024-04-04 10:37 | CM ---
Patient seen bedside with , initial assessment completed. Patient resides with in a condo with elevator. Patient denies DME other than [facility] provided by [facility], denies VN or SNF history. Patient PCP Dr. Ha, pharmacy [facility] in
[place], confirms prescription coverage. Patient reports he has not eaten since and is hopeful to get his gallbladder out. CM will continue to follow for all discharge planning needs.
Plan; home no needs anticipated.
[2024-04-04] MEDS: PROTONIX IV 40 MG IV (10:49)
[2024-04-04] MEDS: NSS (PRESERVATIVE FREE) 10 ML IV (10:50)
--- NOTE | 2024-04-04 11:23 | CON.GI ---
Consultation
-
Date/Time Consultation Requested: 04/04/24
Date/Time Consultation Performed: 04/04/24
Requesting Provider: Dr. Ford
Performing Provider: Judy Nieto
Reason for Consultation: Acute Pancreatitis
Medical History
Chief Complaint / HPI
Chief Complaint: epigastric pain, nausea, vomiting
History of Present Illness:
Lan Holder is a 74 y.o. male with pmhx RA and psoriatic arthritis on methotrexate, diabetes, hypertension, hyperlipidemia, nephrolithiasis, hx pancreatitis admitted with persistent epigastric pain, nausea and vomiting. He was seen in the ER 2
days prior to presentation found to have mild pancreatitis as well as cholelithiasis without evidence of cholecystitis and was discharged home. He was unable to tolerate p.o. and had persistent symptoms so he returned to the ER yesterday and was
subsequently admitted. On his first presentation to the ER his lipase was 632 and repeat was 455 yesterday. LFTs within normal limits. He is hemodynamically stable and afebrile. Reports one other episode of pancreatitis, about 9 years ago, which
he attributes to excessive etoh use.
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
He has a prior history of heavy alcohol use, from the ages of [age], up to a case of beer daily at 1 point however he cut back starting at the age of 47. No history of intranasal or IV drug use.Had tattoos, multiple tattoos placed over the years,
reputable shop in the [place], with fresh needles. He stopped drinking a few years ago when he was started on MTX.
CT A/P: There are 2 gallstones in the gallbladder lumen. There is no abnormal gallbladder distention, gallbladder wall thickening, or pericholecystic inflammation. There is no abnormal biliary dilatation. There is mild diffuse pancreatic
parenchymal atrophy. There is no pancreatic ductal dilatation. There is no pancreatic or peripancreatic edema to suggest acute interstitial edematous pancreatitis. There is no evidence for pancreatic necrosis or peripancreatic fluid collection.
IMPRESSION:
1. Moderate diffuse hepatic steatosis.
2. Cholelithiasis.
3. Mild chronic bilateral renal disease.
4. Moderate diverticulosis in the sigmoid colon.
5. Moderate to severe enlargement of the prostate gland with evidence for benign prostatic hyperplasia (BPH) causing chronic urinary bladder outlet obstruction.
6. Spinal stimulator in place.
7. Mild to moderate elevation of the right hemidiaphragm.
Prior GI studies:
US abdomen 04/21/2020- Liver- Diffuse fatty infiltration of the liver. 17.6 cm in greatest dimension without focal hepatic mass. Smooth capsular is demonstrated. Hepatopetal flow is demonstrated within main portal vein. Cholelithiasis. Spleen is
normal in size, measuring 11.2 cm.
01/23/24: Tbili 0.5, Alk phos 55, AST 26, ALT 34
06/22/2020: ASMA neg, A1AT DNA neg, celiac panel neg, RAFAELA neg, anti-LKM neg, Soluble liver Ag Ab neg, Ceruloplasmin 23.1, Immunoglobulins 869, ferritin 455, HAV Ab IgG neg, HBsAb neg, GGT 164
04/26/2020- HAV Ig M negative, HBsAg negative, HBcAb Ig M negative, HCV Ab negative
04/04/2020- Alb- 5.4, TB-0.6, AKP-55, AST-83, ALT-79
01/26/2020- AST-99, TB-0.5, AKP-58
Fibroscan (08/11/20): 8.8 kPA w/ IQR of 9% correlates to METAVIR fibrosis score of F2. Recommend repeat in 1 year.
Cologuard negative (05/18/2022)
Last Colonoscopy was at the age of 54. Reportedly Normal colonoscopy.
Past Medical History
Past Medical History: HTN, Hypercholesterolemia, NIDDM and Other (RA/psoriasis, HLD, hx of pancreatitis )
Past Surgical History: Appendectomy
Social History
Tobacco: Former Smoker
Alcohol: Former
Drug: Marijuana
Personal:
Employment: Retired
Allergies / Home Medications
Allergy/AdvReac Type Severity Reaction Status Date / Time
simvastatin Allergy muscle Verified 04/03/24 11:08
aches
sitagliptin [From Januvia] Allergy Unknown Verified 04/03/24 11:08
Paaidqv-[id number] Reductase Allergy muscle Verified 04/03/24 11:08
Inhibitor aches
[Jyopduh-Waw-Xsj Reductase
Inhibitor]
�Medication �Instructions �Recorded
amlodipine 5 mg tablet 5 mg PO DAILY Blood Pressure 11/04/14
escitalopram oxalate 10 mg tablet 10 mg PO DAILY Mental 11/04/14
Health/Anxiety
gemfibrozil 600 mg tablet 600 mg PO BID High Cholesterol 11/04/14
tamsulosin 0.4 mg capsule 0.4 mg PO DAILY Urinary Issue 11/04/14
allopurinol 100 mg tablet 100 mg PO DAILY Gout 04/22/19
glimepiride 2 mg tablet 2 mg PO BID Diabetes 04/22/19
carvedilol 25 mg tablet 25 mg PO DAILY Heart 04/03/24
Disease/Condition
empagliflozin 10 mg tablet 10 mg PO DAILY Diabetes 04/03/24
(Jardiance)
lorazepam 0.5 mg tablet 0.5 mg PO HSPRN PRN sleep 04/03/24
metformin 500 mg tablet 1,000 mg PO BIDWMEAL Diabetes 04/03/24
methotrexate sodium 2.5 mg tablet 7.5 mg PO DAVISON Autoimmune Disorder 04/03/24
Review of Systems
-
History Source: Patient
All other systems: A 12 pt ROS was Negative except as stated above in HPI
Vital Signs
Temp Pulse Resp BP Pulse Ox
97.8 F 53 16 129/70 98
04/04/24 07:00 04/04/24 07:00 04/04/24 07:00 04/04/24 07:00 04/04/24 07:00
Physical Exam
Exam
GENERAL: In no acute distress, appears comfortable
ABDOMEN: +BS; soft, nondistended; mild ttp in epigastrium and RUQ, no rebound or guarding
Results
WBC 4.8 10^3/uL (4.8-10.8) 04/04/24 06:41
Hgb 12.9 g/dL (13.0-18.0) L 04/04/24 06:41
Hct 36.7 % (39.0-52.0) L 04/04/24 06:41
MCV 87.0 fL (80.0-94.0) 04/04/24 06:41
Plt Count 212 10^3/uL (130-400) 04/04/24 06:41
Absolute Neuts (auto) 2.8 10^3/uL (1.4-6.5) 04/04/24 06:41
Sodium 133 mmol/L (135-145) L 04/04/24 06:41
Potassium 4.1 mmol/L (3.5-5.1) 04/04/24 06:41
Chloride 108 mmol/L (98-107) H 04/04/24 06:41
Carbon Dioxide 19 mmol/L (22-30) L 04/04/24 06:41
BUN 14 mg/dl (9-20) 04/04/24 06:41
Creatinine 0.7 mg/dL (0.7-1.3) 04/04/24 06:41
Calcium 9.0 mg/dl (8.4-10.2) 04/04/24 06:41
Total Bilirubin 0.9 mg/dl (0.2-1.3) 04/04/24 06:41
AST 21 U/L (17-59) 04/04/24 06:41
ALT 21 U/L (0-50) 04/04/24 06:41
Alkaline Phosphatase 75 U/L (38-126) 04/04/24 06:41
Lipase 455 U/L (23-300) H 04/03/24 11:20
Diagnostic Image Results:
Prior GI Procedures:
EGD:
Colonoscopy:
Assessment / Plan
-
74 y.o. male with pmhx RA and psoriatic arthritis on methotrexate, diabetes, hypertension, hyperlipidemia, nephrolithiasis, hx pancreatitis (2/2 etoh use?) admitted for gallstone pancreatitis, failed outpatient management.
Gallstone pancreatitis
-meets 2/3 criteria-- pain + lipase, imaging shows diffuse pancreatic parenchymal atrophy, can be normal in setting of age, no sx to suggest EPI; no pancreatic or peripancreatic edema to suggest acute interstitial edematous pancreatitis. There is no
evidence for pancreatic necrosis or peripancreatic fluid collection.
-2nd episode of pancreatitis-- initial episode years ago in setting of excessive etoh use/januvia?
-Lipase improving, 676 --> 455
-LFTs wnl
-BUN improving, 23 --> 15 --> 14
-imaging shows evidence of cholelithiasis without GB distension, wall thickening or pericholecystic inflammation; 2 gallstones in GB lumen
-given normal LFTs and lack of imaging findings, no reason to suspect choledocholithiasis
-c/w IVF-- currently getting LR @ 150 cc/hr
-antiemetics, analgesia prn, PPI
-bowel regimen
-ADAT-- defer to surgery on timing of cholecystectomy (if planning to perform inpatient)
Fatty Liver
-Fibroscan (2019): F2 fibrosis; overdue for repeat, discussed with patient, he will f/u as outpatient
-Previously had chronically elevated LFTs with comprehensive workup that was negative
-LFTs have since normalized-- healthier lifestyle-- stopped drinking, significant weight loss
CRC screening
-Due 05/2025
GI will sign off. Please call if LFTs rise or concern for biliary obstruction or lack of improvement in pancreatitis with supportive measures.
Data Reviewed
-
CT Scan: Report Reviewed by me
Ultrasound: Report Reviewed by me
Old Records: Reviewed
-
-
Thank you for consultation and allowing me to participate in the patient's care. Please call the electronic technician GI physician during the after hours with any questions or concerns.
[2024-04-04 15:16] VITALS: BP 124/59
[2024-04-04] MEDS: COREG 12.5 MG PO (21:42)
[2024-04-04] MEDS: NON-FORMULARY ITEM 1 UNIT PO (21:44)
[2024-04-04 23:06] VITALS: BP 143/77
[2024-04-05] VITALS (11 sets, daily range): BP systolic 113–139; BP diastolic 62–92
[2024-04-05] MEDS: LR 1000 IV ×3 (04:35→21:39)
[2024-04-05 07:51] LABS: % Basophils 0.8 % (0-2); % Eosinophils 4.1 % (0-6); % Immature Granulocytes 0.5 % (0-0.5); % Lymphocytes 24.6 % (20.5-51.1); % Monocytes 15.7 % (1.7-9.3); % Neutrophils 54.3 % (42.2-75.2); Absolute Eosinophils 0.2 10^3/uL (0-0.7); Absolute Monocytes 0.6 10^3/uL (0.1-0.6); Absolute Neutrophils 2.2 10^3/uL (1.4-6.5); Hematocrit 35.2 % (39.0-52.0); Hemoglobin 12.6 g/dL (13.0-18.0); Mean Corp Hgb Conc. 35.8 g/dL (33.0-37.0); Mean Corpuscular Hgb 31.6 pg (27.0-31.0); Mean Corpuscular Volume 88.2 fL (80.0-94.0); Mean Platelet Volume 10.1 fL (7.4-10.4); Nucleated Red Blood Cells % 0 % (-); Platelet Count 177 10^3/uL (130-400); Red Blood Cell Count 3.99 10^6/uL (4.70-6.10); Red Cell Dist. Width 13.5 % (11.5-14.5)
[2024-04-05] MEDS: FOLVITE 1 MG PO (07:52)
[2024-04-05] MEDS: HEPARIN 5000 UNITS SC ×2 (07:52→16:01)
[2024-04-05] MEDS: LOPID 600 MG PO ×2 (07:52→20:26)
[2024-04-05] MEDS: ZYLOPRIM 100 MG PO (07:52)
[2024-04-05] MEDS: FLOMAX 0.4 MG PO (07:52)
[2024-04-05] MEDS: LEXAPRO 10 MG PO (07:52)
[2024-04-05] MEDS: NORVASC 5 MG PO (07:52)
[2024-04-05] MEDS: NSS (PRESERVATIVE FREE) 10 ML IV (07:53)
[2024-04-05] MEDS: PROTONIX IV 40 MG IV (07:53)
[2024-04-05 08:20] LABS: ALT (SGPT) 21 U/L (0-50); AST (SGOT) 24 U/L (17-59); Albumin 3.3 g/dl (3.5-5.0); Alkaline Phosphatase 63 U/L (38-126); Blood Urea Nitrogen 12 mg/dl (9-20); Calcium 9.1 mg/dl (8.4-10.2); Carbon Dioxide 25 mmol/L (22-30); Chloride 109 mmol/L (98-107); Estimated Creatinine Clearance 94 ml/min; Glucose 147 mg/dl (70-99); Potassium 4.3 mmol/L (3.5-5.1); Sodium 135 mmol/L (135-145); Total Bilirubin 0.7 mg/dl (0.2-1.3); Total Protein 5.4 g/dl (6.3-8.2); eGFR > 60.00
[2024-04-05] MEDS: DILAUDID 0.25 MG IV ×3 (09:22→22:16)
[2024-04-05] MEDS: COREG 12.5 MG PO ×2 (10:03→20:25)
--- NOTE | 2024-04-05 10:08 | W.PN.HOSP.TC ---
Today's Communication/Plan
-
lap su today
Assessment / Plan
Assessment / Plan
Assessment:
Pancreatitis
- mild acute pancreatitis with chronic component with CT showing atrophy
- likely biliary origin
- for lap su after discussion with GI and GS
- continue IVF
- pain control, anti-emetics
Dyspepsia
- continue IV PPI
NIDDM
- hold Jardiance, metformin, glimepiride
- continue SSI
- A1c: pending
Essential Hypertension
- continue home Coreg/Norvasc
HLD
- No known ASCVD history,
- allergic to statin, currently on gemfibrozil twice daily
RA/PsA -- on immunomodulator
- Per his history he has both rheumatoid and psoriatic arthritis
- On chronic immunosuppression with methotrexate 7.5 mg daily
- No signs of worsening tenosynovitis or joint inflammation
H/O nephrolithiasis
- No known underlying conditions
- continued on tamsulosin
DVT ppx: SC Heparin
Code: Full
Anticipated Discharge: 24 - 48 hours
Subjective/Interval History
-
Date of Service: April 05, 2024
seen by surgery earlier today for Lap su
Objective Data
-
Labs:
Laboratory Results
04/05/24
07:41
WBC 4.0 L
Hgb 12.6 L
Hct 35.2 L
Plt Count 177
Sodium 135
Potassium 4.3
Chloride 109 H
Carbon Dioxide 25
BUN 12
Creatinine 0.8
Glucose 147 H
Calcium 9.1
Total Bilirubin 0.7
AST 24
ALT 21
Alkaline Phosphatase 63
Vital Signs:
Vital Signs
Temp Pulse Resp BP Pulse Ox
98.5 F 53 18 137/66 98
04/05/24 07:00 04/05/24 07:00 04/05/24 07:00 04/05/24 07:52 04/05/24 08:00
I&O
04/04/24 04/05/24 04/06/24
06:59 06:59 06:59
Intake Total 0 / 0 1440 / 1440
Balance 0 / 0 1440 / 1440
Physical Exam
-
General: No Apparent Distress
HEENT: Normocephalic and Atraumatic
Respiratory: Negative Wheezes
Cardiac: Regular Rhythm and S1/S2
GI: Soft
Genito-urinary: No Costovertebral Tender
Neuro: AO x 3
Data Reviewed
-
Total Time Spent with Patient (in minutes): 41
Labs: Labs Reviewed by me
--- NOTE | 2024-04-05 10:21 | W.SUR.PREOP ---
Pre-Operative Surgical Note
-
I have examined this patient prior to the performance of the scheduled procedure.
The patient's condition is unchanged from the time of the current History and
Physical and the patient is able to undergo the scheduled procedure.
Patient seen and examined today.
At postprandial right upper quadrant pain overnight.
Will plan for a laparoscopic cholecystectomy and cholangiogram in the OR today.
Risks/Benefits/Alternatives, expected postoperative course and possible complications (bleeding, infection, injury to surrounding structures, acute/chronic pain) discussed at length. Patient wishes to proceed with surgery. All questions answered.
Consent obtained.
I spent roughly 50 minutes in total for the care of this patient today including direct patient care and counseling, reviewing labs, imaging, coordination of care, as well as documentation.
--- NOTE | 2024-04-05 11:53 | CM ---
Patient seen, for OR today. CM will continue to follow for all discharge planning needs.
Plan; home no needs, watch for possible VN needs upon discharge.
[2024-04-05 12:24] LABS: Glucose - Point of Care 129 mg/dl (70-99)
--- NOTE | 2024-04-05 13:51 | W.IMMPOSTOP ---
Surgical Immed Post Op Note
-
Primary Surgeon: Tramaine Rizo MD
Assisting Surgeon: None
Pre-op Diagnosis: Gallstone pancreatitis
Post-op Diagnosis: Gallstone pancreatitis, chronic cholecystitis, adhesions
Procedure Performed:
1. Laparoscopic lysis of adhesions
2. Laparoscopic cholecystectomy with cholangiogram
Anesthesia Type: General
Specimen / Cultures: Gallbladder and contents
Estimated Blood Loss: 3 cc
Complications: None
Operative Findings: Fairly significant to midline and right-sided adhesions from his prior open appendectomy. We spent roughly 45 minutes in total lysing adhesions before were able to visualize the gallbladder. The gallbladder had some chronic
inflammation with periduodenal fat plastered over the anterior surface of the gallbladder this was carefully lysed with both sharp, electrocautery and blunt dissection. A critical view of safety was obtained prior to a cholangiogram which
demonstrated no distal filling defects. The duct was ligated with a 5 mm Clip followed by a 0 PDS Endoloop. There was some spillage of bile but no stones.
POST OP PLAN:
Imaging: None
Labs: Routine AM
Diet: Advance to Regular as tolerated
Analgesia: Tylenol 650mg q6 Jacskon, Daiana 5mg q6 PRN, Dilaudid 0.5mg q2h PRN
Neuro/vascular checks: q4h
AC/AP: Hold Therapeutic AC, Ok for DVT PPx
Activity: Ad Ashleigh
Wound/Incisions/Drains: Routine
Abx: None
Dispo: RNF, anticipate discharge home later today versus tomorrow.
[2024-04-05 14:29] LABS: Glucose - Point of Care 147 mg/dl (70-99)
--- NOTE | 2024-04-05 15:00 | TRANSFER ---
Pt transferred back to room after lap su. 5 lap sites to abdomen approximated with surgical glue. Pt on 2L NC. Pt with no complaints or signs of discomfort. Plan of care ongoing.
[2024-04-05 16:36] LABS: Glucose - Point of Care 146 mg/dl (70-99)
[2024-04-05] MEDS: NOVOLOG FLEXPEN-LOW RESISTANCE SC (16:37)
[2024-04-05] MEDS: LR IV (17:22)
[2024-04-05 21:15] LABS: Glucose - Point of Care 302 mg/dl (70-99)
[2024-04-06] MEDS: HEPARIN 5000 UNITS SC ×2 (00:03→08:45)
[2024-04-06 03:00] VITALS: BP 145/75
[2024-04-06] MEDS: DILAUDID 0.25 MG IV (04:13)
[2024-04-06] MEDS: LR 1000 IV (04:13)
[2024-04-06 07:00] VITALS: BP 120/57
[2024-04-06 07:22] LABS: Hematocrit 40.2 % (39.0-52.0); Hemoglobin 14.3 g/dL (13.0-18.0); Mean Corp Hgb Conc. 35.6 g/dL (33.0-37.0); Mean Corpuscular Hgb 31.5 pg (27.0-31.0); Mean Corpuscular Volume 88.5 fL (80.0-94.0); Mean Platelet Volume 10.2 fL (7.4-10.4); Platelet Count 244 10^3/uL (130-400); Red Blood Cell Count 4.54 10^6/uL (4.70-6.10); Red Cell Dist. Width 13.4 % (11.5-14.5); White Blood Cell Count 8.4 10^3/uL (4.8-10.8)
--- NOTE | 2024-04-06 07:32 | W.PN.GS2 ---
Today's Communication / Plan
-
Dispo planning
Assessment / Plan
-
This is a 74-year-old male postoperative day 1 from a laparoscopic cholecystectomy with cholangiogram, and lysis of adhesions for gallstone pancreatitis. Doing well, expected postoperative course.
Okay to DC home today.
Discharge instructions placed, pain meds sent to pharmacy.
Patient to follow-up with me in 2 to 3 weeks.
Time Spent
Total Time Spent with Patient (in minutes): 20
Subjective Data
-
Date of Service: April 06, 2024
Interval Events:
No acute events overnight. Slept well. Pain Controlled. Denies Nausea/Vomiting, +bowel function. Tolerating diet.
Objective Data
-
Intake and Output
04/05/24 04/06/24 04/07/24
06:59 06:59 06:59
Intake Total 1440 / 1440 3805 / 3805
Output Total 1475 / 1475
Balance 1440 / 1440 2330 / 2330
Intake:
Oral fluids 1440 / 1440 1080 / 1080
IV fluids (Total) 2725 / 2725
Normosol 75 / 75
Output:
Urine, Voided 1475 / 1475
Other:
Number of approximated MODERATE 2 3
amounts of urine
Vital Signs
Temp Pulse Resp BP Pulse Ox
98.9 F 61 18 145/75 94
04/06/24 03:00 04/06/24 03:00 04/06/24 03:00 04/06/24 03:00 04/06/24 03:00
Lab Results
04/06/24 06:50
Calcium 9.1 mg/dl (8.4-10.2) 04/05/24 07:41
Magnesium 2.1 mg/dl (1.6-2.3) 04/04/24 06:41
Total Bilirubin 0.7 mg/dl (0.2-1.3) 04/05/24 07:41
AST 24 U/L (17-59) 04/05/24 07:41
ALT 21 U/L (0-50) 04/05/24 07:41
Alkaline Phosphatase 63 U/L (38-126) 04/05/24 07:41
Total Protein 5.4 g/dl (6.3-8.2) L 04/05/24 07:41
Albumin 3.3 g/dl (3.5-5.0) L 04/05/24 07:41
Physical Exam
-
GENERAL/NEURO: Awake, Alert, no distress
CHEST: Unlabored breathing on RA
ABDOMEN: Soft, appropriately tender to palpation, mildly distended, incisions clean dry and intact.
[2024-04-06 07:51] LABS: ALT (SGPT) 79 U/L (0-50); AST (SGOT) 97 U/L (17-59); Albumin 4.1 g/dl (3.5-5.0); Alkaline Phosphatase 84 U/L (38-126); Blood Urea Nitrogen 9 mg/dl (9-20); Calcium 9.4 mg/dl (8.4-10.2); Carbon Dioxide 26 mmol/L (22-30); Chloride 104 mmol/L (98-107); Estimated Creatinine Clearance 108 ml/min; Glucose 146 mg/dl (70-99); Sodium 137 mmol/L (135-145); Total Bilirubin 0.9 mg/dl (0.2-1.3); Total Protein 6.3 g/dl (6.3-8.2); eGFR > 60.00
[2024-04-06 08:11] LABS: Glucose - Point of Care 173 mg/dl (70-99)
[2024-04-06] MEDS: COREG 12.5 MG PO (08:44)
[2024-04-06] MEDS: FLOMAX 0.4 MG PO (08:44)
[2024-04-06] MEDS: NORVASC 5 MG PO (08:44)
[2024-04-06] MEDS: FOLVITE 1 MG PO (08:45)
[2024-04-06] MEDS: ZYLOPRIM 100 MG PO (08:45)
[2024-04-06] MEDS: LOPID 600 MG PO (08:45)
[2024-04-06] MEDS: NSS (PRESERVATIVE FREE) 10 ML IV (08:45)
[2024-04-06] MEDS: PROTONIX IV 40 MG IV (08:45)
[2024-04-06] MEDS: LEXAPRO 10 MG PO (08:45)
[2024-04-06] MEDS: NOVOLOG FLEXPEN-LOW RESISTANCE 1 UNITS SC (08:46)
--- NOTE | 2024-04-06 08:54 | W.PN.HOSP.TC ---
Today's Communication/Plan
-
dc to home today
Assessment / Plan
Assessment / Plan
Assessment:
Pancreatitis
- mild acute pancreatitis with chronic component with CT showing atrophy
- likely biliary pancreatitis with chronic cholecystitis
- s/p lap lysis of adhesions and lap su with negative IOC
- DC home with pain control and GS follow up. No indication for Abx.
Dyspepsia
- continue PPI
NIDDM
- hold Jardiance, metformin, glimepiride
- continue SSI
- A1c: pending
Essential Hypertension
- continue home Coreg/Norvasc
HLD
- No known ASCVD history,
- allergic to statin, currently on gemfibrozil twice daily
RA/PsA -- on immunomodulator
- Per his history he has both rheumatoid and psoriatic arthritis
- On chronic immunosuppression with methotrexate 7.5 mg daily
- No signs of worsening tenosynovitis or joint inflammation
H/O nephrolithiasis
- No known underlying conditions
- continued on tamsulosin
DVT ppx: SC Heparin
Code: Full
More than 30 minutes spent in discharge including
Final examination of the patient
Summarizing hospital stay
Instructions for continuing care to all relevant caregivers
Preparation of discharge records, prescriptions, and referral forms
Total time spent (in minutes): 42
Anticipated Discharge: Today
Subjective/Interval History
-
Date of Service: April 06, 2024
doing well post-su procedure, denies any significant pain and +flatus
Objective Data
-
Labs:
Laboratory Results
04/06/24
06:50
WBC 8.4
Hgb 14.3
Hct 40.2
Plt Count 244 D
Sodium 137
Potassium 4.0
Chloride 104
Carbon Dioxide 26
BUN 9
Creatinine 0.7
Glucose 146 H
Calcium 9.4
Total Bilirubin 0.9
AST 97 H
ALT 79 H
Alkaline Phosphatase 84
Vital Signs:
Vital Signs
Temp Pulse Resp BP Pulse Ox
98.0 F 68 18 120/57 96
04/06/24 07:00 04/06/24 07:00 04/06/24 07:00 04/06/24 07:00 04/06/24 07:00
I&O
04/05/24 04/06/24 04/07/24
06:59 06:59 06:59
Intake Total 1440 / 1440 3805 / 3805
Output Total 1475 / 1475
Balance 1440 / 1440 2330 / 2330
Physical Exam
-
General: No Apparent Distress
HEENT: Normocephalic and Atraumatic
Respiratory: Negative Wheezes or Rales
Cardiac: Regular Rhythm and S1/S2
GI: Soft
Genito-urinary: No Costovertebral Tender
Neuro: AO x 3
Hematologic / Lymphatic: No Lymphadenopathy
Psych: Calm
Data Reviewed
-
Total Time Spent with Patient (in minutes): 42
Labs: Labs Reviewed by me
--- NOTE | 2024-04-06 09:22 | W.DS.TRANS ---
DC Summary - [employer]
-
Discharge Instructions:
Discharge Diagnosis/Procedures Gallstone pancreatitis, chronic cholecystitis.
Laparoscopic cholecystectomy with cholangiogram,
along with lysis of adhesions
Diet No restrictions
Activity No strenuous activity
Driving Restrictions As prior to admission
Bathing Restrictions OK to Shower
Instructions:
Stand-Alone Forms:
Changes to Home Medications: No
Discharge Medications:
DC Medications w/original date entered in 24h00
amlodipine 5 mg tablet 5 mg PO DAILY Blood Pressure 11/04/14
escitalopram oxalate 10 mg tablet 10 mg PO DAILY Mental Health/Anxiety 11/04/14
gemfibrozil 600 mg tablet 600 mg PO BID High Cholesterol 11/04/14
tamsulosin 0.4 mg capsule 0.4 mg PO DAILY Urinary Issue 11/04/14
allopurinol 100 mg tablet 100 mg PO DAILY Gout 04/22/19
glimepiride 2 mg tablet 2 mg PO BID Diabetes 04/22/19
carvedilol 25 mg tablet 25 mg PO DAILY Heart Disease/Condition 04/03/24
empagliflozin 10 mg tablet (Jardiance) 10 mg PO DAILY Diabetes 04/03/24
lorazepam 0.5 mg tablet 0.5 mg PO HSPRN PRN sleep 04/03/24
metformin 500 mg tablet 1,000 mg PO BIDWMEAL Diabetes 04/03/24
methotrexate sodium 2.5 mg tablet 7.5 mg PO DAVISON Autoimmune Disorder 04/03/24
acetaminophen 325 mg tablet 650 mg (2 x 325 mg) PO Q6HPRN PRN mild pain #14 tabs 04/06/24
ondansetron 4 mg disintegrating tablet 4 mg PO Q8H PRN nausea and vomiting #15 tabs 04/06/24
pantoprazole 40 mg tablet,delayed release (Protonix) 40 mg PO DAILY #30 tabs 04/06/24
tramadol 50 mg tablet 25 mg (1/2 x 50 mg) PO Q6HPRN PRN severe pain/breakthrough pain #8 tabs 07/30/24
Home Medication Changes
Pending Results: No
Total time spent discharging patient (in min): 42
--- NOTE | 2024-04-06 10:32 | CM ---
Patient seen bedside, reports he is discharging home today. Patient reports he is very happy with the care he has received at [facility]. CM reviewed IMM, signed, placed in chart. Patient denies any needs or VN upon discharge. CM will continue to
follow for all discharge planning needs.
Plan; home no needs.
[2024-04-06 11:12] LABS: Glycohemoglobin (HgbA1c) 7.9 % (4.0-5.6)
--- NOTE | 2024-04-13 16:52 | OR.RPT ---
Operative Report
Operative Report
Patient Name: Lan Holder
: 1950
Date of Operation: 04/05/2024
Preoperative Diagnosis: Gallstone pancreatitis
Postoperative Diagnosis: Gallstone pancreatitis, chronic cholecystitis, intra-abdominal adhesions
Procedure(s):
Laparoscopic Cholecystectomy with Cholangiogram
Laparoscopic lysis of adhesions
Surgeon(s):
Dr. Rizo
Laborer Stores(s):
None
Anesthesia: General
Estimated Blood Loss: 3 cc
Urine Output: None
Drains/Lines/Implants: None
Specimens:
1. Gallbladder and contents
HPI/Surgical Indications:
This is a 74-year-old male with a history of prior open appendectomy who presented with abdominal pain, found to have gallstone pancreatitis. Risks/Benefits/Alternatives were discussed at length, and the patient agreed to proceed with surgery.
Operative Findings: Fairly significant to midline and right-sided adhesions from his prior open appendectomy. We spent roughly 45 minutes in total lysing adhesions before were able to visualize the gallbladder. The gallbladder had some chronic
inflammation with periduodenal fat plastered over the anterior surface of the gallbladder this was carefully lysed with both sharp, electrocautery and blunt dissection. A critical view of safety was obtained prior to a cholangiogram which
demonstrated no distal filling defects. The duct was ligated with a 5 mm Clip followed by a 0 PDS Endoloop. There was some spillage of bile but no stones.
Procedure Description:
The patient was brought to the Operating Room and placed in the supine position. IV antibiotics were infused and sequential compression devices were confirmed to be on. Following uneventful induction of general endotracheal anesthesia, an
orogastric tube was placed. The abdomen was prepped and draped in the usual sterile fashion. The abdomen was entered using an infraumbilical open Michael technique. Pneumoperitoneum to 15 mmHg pressure was obtained without difficulty and we
confirmed that no injury had occurred during our entry. Interestingly there was significant amount of adhesions stretching from his right lower quadrant all the way up to the falciform ligament completely obscuring our view of the gallbladder. A 5
mm port was placed in the left upper quadrant and using a bipolar energy device as well as blunt and sharp dissection the adhesions were carefully dissected until we were able to place our standard three 5 mm ports along the right subcostal margin.
The patient was positioned in reverse trendelenberg and rotated with the right side up slightly. A locking grasping forceps was placed on the fundus of the gallbladder where it was then retracted cephalad and to the right. Again there is
significant adhesions over the overlying surface of the gallbladder consistent with chronic cholecystitis. Again we dissected this tediously using blunt and bipolar dissection. Using appropriate grasping instruments, the peritoneum overlying the
triangle of Calot was incised. The cystic duct/gallbladder junction was identified, dissected circumferentially. The cystic artery was identified medially and was dissected circumferentially. A critical view was obtained. A clip was then placed
on the cystic duct/gallbladder junction and an intraoperative cholangiogram performed using fluoroscopy, which showed good flow of dye into the duodenum. There were no intra- or extrahepatic bile duct filling defects. The biliary anatomy appeared
normal. Following completion of the cholangiogram, the catheter was removed. Two clips were then placed proximally on the cystic duct and the duct divided. This was reinforced with a 0 PDS Endoloop. Two clips were placed proximally and one
distally on the cystic artery, and the artery was divided. Remaining soft tissue attachments of the gallbladder to the liver bed were then divided using electrocautery. There was minimal spillage of bile and no spillage of stones. The gallbladder
bed was inspected and excellent hemostasis was obtained. The gallbladder was extracted through the 12 mm trocar site using an endocatch bag. The abdomen was again irrigated and excellent hemostasis was assured. All remaining trocars were then
removed and the pneumoperitoneum was evacuated. As we were closing the 12 mm trocar site I noted small bowel near the inferior portion of the incision and so reinflated the abdomen with pneumoperitoneum and placed my camera through the left lower
quadrant port. There I noted several loops of small bowel adhered to the anterior abdominal wall. Though we were close to the edge of the bowel wall, no injury was identified. Under direct visualization the 12 mm trocar was then closed using 0
PDS running suture. The trocars were once again removed and pneumoperitoneum evacuated. All trocar sites were closed at the skin level using 4-0 Monocryl followed by Dermabond. Overall, the patient tolerated the procedure well and was taken to
the Recovery Room postoperatively in stable condition.
I was the attending physician and performed the procedure with no assistance. I was present for all portions of the case
Tramaine Rizo MD
== END 2024-04-06 11:19 | disposition home or self-care (01) | DRG 417 ==
LOC: 4 WEST ACU 17:23
PROVIDERS: Radiology Diagnostic Radiology; Surgery; ADMITTING PHYSICIAN Internal Medicine; ATTENDING PHYSICIAN Internal Medicine; CONSULT PHYSICIAN Internal Medicine; CONSULT PHYSICIAN Surgery; EMERGENCY PHYSICIAN Emergency Medicine; FAMILY PHYSICIAN Internal Medicine
PROC: BF5C2Z0 Other Imaging of Hepatobiliary System, All using Fluorescing Agent, Intraoperative (ICD-10-PCS; 2024-04-05)
PROC: 0FT44ZZ Resection of Gallbladder, Percutaneous Endoscopic Approach (ICD-10-PCS; 2024-04-05)
PROC: 0DNW4ZZ Release Peritoneum, Percutaneous Endoscopic Approach (ICD-10-PCS; 2024-04-05)
DX: K80.10 Calculus of gallbladder with chronic cholecystitis without obstruction (principal); K85.10 Biliary acute pancreatitis without necrosis or infection; K86.1 Other chronic pancreatitis; E11.9 Type 2 diabetes mellitus without complications; I10 Essential (primary) hypertension; K66.0 Peritoneal adhesions (postprocedural) (postinfection); K86.89 Other specified diseases of pancreas; K57.30 Diverticulosis of large intestine without perforation or abscess without bleeding; G89.29 Other chronic pain; K76.0 Fatty (change of) liver, not elsewhere classified; E78.00 Pure hypercholesterolemia, unspecified; N40.1 Benign prostatic hyperplasia with lower urinary tract symptoms; M06.9 Rheumatoid arthritis, unspecified; L40.50 Arthropathic psoriasis, unspecified; Z87.442 Personal history of urinary calculi; Z79.631 Long term (current) use of antimetabolite agent; Z88.8 Allergy status to other drugs, medicaments and biological substances; Z79.84 Long term (current) use of oral hypoglycemic drugs; Z87.891 Personal history of nicotine dependence
CPT/HCPCS: 88304; 74177; 74178; 74300; 76000; 76700; 80053; 80061; 82962; 83036; 83605; 83690; 83735; 85025; 85027; 93005; 96361; 96374; 96375; 99285; A4300; C1776; Q9967

== ENCOUNTER → 2025-08-22 13:59 | Outpatient (REF) | payer MEDICARE, OTHER, SELFPAY | LOC: CLAB 13:59 | PROVIDERS: ATTENDING PHYSICIAN Urology | DX: R97.20 Elevated prostate specific antigen [PSA] (principal) | CPT/HCPCS: 88305 ==